=== PATIENT | female | born 1960 | race Caucasian/White ===

== ENCOUNTER → 2021-07-14 11:20 | Outpatient (CLI) | payer OTHER, SELFPAY ==
[2021-07-14 13:35] LABS: Vitamin B12 252 pg/mL (239-931)
[2021-07-17 16:20] LABS: Albumin 3.7 g/dL (2.9-4.4); Alpha-1-Globulin 0.2 g/dL (0.0-0.4); Alpha-2-Globulin 0.8 g/dL (0.4-1.0); Gamma Globulin 0.9 g/dL (0.4-1.8); Protein, Total 6.7 g/dL (6.0-8.5)
== END ==
PROVIDERS: Referring Provider Psychiatry & Neurology Neurology; Visit Provider Psychiatry & Neurology Neurology
DX: Z80.3 Family history of malignant neoplasm of breast (principal); G47.33 Obstructive sleep apnea (adult) (pediatric); F33.9 Major depressive disorder, recurrent, unspecified; F90.9 Attention-deficit hyperactivity disorder, unspecified type; M79.7 Fibromyalgia
CPT/HCPCS: 36415; 82607; 84155; 84165

== ENCOUNTER 2021-12-13 11:31 | Emergency (ER) | payer OTHER, SELFPAY ==
[2021-12-13 11:55] VITALS: BP 158/100; PULSE 94; RESP 16; TEMP 36.8; O2SAT 99; BMI 31.8
[2021-12-13] MEDS: LIDO 1%/SOD BICARB 8.4% (10ML) 10 ML SYRINGE INJ (14:45)
--- NOTE | 2021-12-13 14:49 | ED.WOUNDLAC ---
HPI - Wound/Laceration <TANYA Jackson - Last Filed: 12/13/21 15:42> General Chief Complaint: Wound/Laceration Stated Complaint: Cut right ring finger in mandolin Time Seen by Provider: 12/13/21 14:48 Mode of arrival: Family Vehicle History of Present Illness HPI narrative: 61-year-old female, nonsmoker, presents emergency department with avulsion laceration to her right ring finger while using a mandolin to cut courtneyi earlier today. Bleeding is controlled with direct pressure and pressure dressing. Patient is up-to-date with her tetanus. Related Data Home Medications Medication Instructions Recorded Confirmed Trazadone 150 mg PO 07/02/21 atorvastatin 20 mg tablet 20 mg PO BEDTIME 07/02/21 07/02/21 losartan 25 mg tablet 25 mg PO DAILY 07/02/21 07/02/21 methylphenidate HCl 36 mg 36 mg PO DAILY 07/02/21 07/02/21 tablet,extended release 24 hr (Concerta) Previous Rx's Medication Instructions Recorded oxycodone-acetaminophen 5 mg-325 1 tab PO Q6H PRN pain #10 tabs 12/13/21 mg tablet (Percocet) Allergies Allergy/AdvReac Type Severity Reaction Status Date / Time No Known Drug Allergies Allergy Unverified 07/02/21 11:43 Review of Systems <TANYA Jackson - Last Filed: 12/13/21 15:42> Review of Systems Narrative: Narrative: GENERAL: Denies chills, fatigue, fever, sweats. See HPI HEENT: Denies sinus pain, ear pain, sore throat, difficulty swallowing, dizziness. RESPIRATORY: Denies dyspnea, cough, wheezing, sputum. CARDIOVASCULAR: Denies chest pain, palpitations, edema. GASTROINTESTINAL: Denies nausea, vomiting, abdominal pain, diarrhea, constipation. : Denies dysuria, frequency, incontinence, hematuria, urinary retention, flank pain. MSK: Denies weakness, joint pain, or bony pain. SKIN: Endorses laceration of right ring finger, active bleeding and pain. NEUROLOGIC: Denies weakness, dizziness, headache, numbness, confusion. PSYCHIATRIC: No concerning psychosocial issues. Patient History <TANYA Jackson - Last Filed: 12/13/21 15:42> Social History Smoking Status: Never smoker Smoking Status: Never smoker Substance Use Type: does not use Exam <TANYA Jackson - Last Filed: 12/13/21 15:42> Narrative Exam Narrative: Exam Narrative: GENERAL: This is a well-nourished, well-developed patient, in no acute distress HEAD: Atraumatic. Normocephalic. MSK: Moves all extremities. Normal range of motion, no clubbing or edema. Neurovascularly intact. NEURO: A&O x 3. SKIN: 1 cm x 1.5 cm avulsion laceration to right distal ring finger. Fingernail affected and nothing left to suture. Initial Vital Signs Initial Vital Signs: Vital Signs Temperature 98.3 F 12/13/21 11:55 Pulse Rate 94 H 12/13/21 11:55 Respiratory Rate 16 12/13/21 11:55 Blood Pressure 158/100 H 12/13/21 11:55 Pulse Oximetry 99 12/13/21 11:55 Oxygen Delivery Method 12/13/21 11:55 Reviewed <Zonia Toney DO - Last Filed: 12/14/21 08:02> Initial Vital Signs Initial Vital Signs: Vital Signs Temperature 98.3 F 12/13/21 11:55 Pulse Rate 94 H 12/13/21 11:55 Respiratory Rate 16 12/13/21 11:55 Blood Pressure 158/100 H 12/13/21 11:55 Pulse Oximetry 99 12/13/21 11:55 Oxygen Delivery Method 12/13/21 11:55 Procedures <TANYA Jackson - Last Filed: 12/13/21 15:42> Laceration Repair Laceration 1: Site: hand (Right ring finger) Side (If applicable): right Size (cm): 2 Description: other (Avulsion) Local Anesthetic: lidocaine 1% and with bicarb Amount of anesthesia used (mL): 3 Skin layer closed with: other (Surgifoam) Course <TANYA Jackson - Last Filed: 12/13/21 15:42> Orders Ordered: Discontinued Medications Hydrocodone Bitart/Acetaminophen (Hydrocodone/Acet 5/325 Tablet) 1 tab PO NOW ONE Stop: 12/13/21 14:57 Last Admin: 12/13/21 15:00 Dose: 1 tab Documented By: JENNIE Lidocaine/Sodium Bicarbonate (Lido 1%/Sod Bicarb 8.4% (10ml) 10 Ml Syringe) 10 ml INJ NOW ONE Stop: 12/13/21 14:43 Last Admin: 12/13/21 14:45 Dose: 10 ml Documented By: JENNIE Vital Signs Vital signs: Vital Signs - 8 hr 12/13/21 11:55 Temperature 98.3 F Pulse Rate 94 H Respiratory Rate 16 Blood Pressure 158/100 H Pulse Oximetry 99 Oxygen Delivery Method Room Air <Zonia Toney DO - Last Filed: 12/14/21 08:02> Orders Ordered: Discontinued Medications Hydrocodone Bitart/Acetaminophen (Hydrocodone/Acet 5/325 Tablet) 1 tab PO NOW ONE Stop: 12/13/21 14:57 Last Admin: 12/13/21 15:00 Dose: 1 tab Documented By: JENNIE Lidocaine/Sodium Bicarbonate (Lido 1%/Sod Bicarb 8.4% (10ml) 10 Ml Syringe) 10 ml INJ NOW ONE Stop: 12/13/21 14:43 Last Admin: 12/13/21 14:45 Dose: 10 ml Documented By: JENNIE Vital Signs Vital signs: Vital Signs - 8 hr 12/13/21 11:55 Temperature 98.3 F Pulse Rate 94 H Respiratory Rate 16 Blood Pressure 158/100 H Pulse Oximetry 99 Oxygen Delivery Method Room Air MDM - Wound/Laceration <TANYA Jackson - Last Filed: 12/13/21 15:42> Differential Diagnosis Differential diagnosis: Likely avulsion of skin MDM Narrative Medical decision making narrative: 61-year-old female presents to the emergency department with right ring finger avulsion laceration. Tourniquet applied to right ring finger, wound was anesthetized, wound soaked in lidocaine with epinephrine to slow the bleeding but was not successful in stopping all bleeding. Surgifoam and Surgicel applied with a pressure dressing. Bleeding controlled. Tube gauze applied. Discussed wound care, plan of care and return precautions with patient and friend, who were agreeable with course of action. Discharge Plan Departure Patient Disposition: Home Clinical Impression: Avulsion of skin Instructions: DI for Wound Infection Activity Restrictions/Additional Instructions: *You have been diagnosed with a avulsion laceration of your right ring finger. We have numbed up the site and applied a clotting solution to the finger. Please keep the dressing on for the 1st 24 hours before removing, and less blood soaks to the dressing. In that case, please remove and re-dress as we discussed. After 24 hours, you may apply antibiotic ointment 2 times daily and change the dressing as needed. For worsening symptoms that include recurrent profuse bleeding, redness, yellow discharge, intolerable pain, please feel free to return to the emergency department. *What to do: *Please continue to take your regular medications as directed. [ ] New medication prescriptions sent to your pharmacy: [ ] [ x] New medication written as a paper prescription [ ] No new medications given *Please follow up with your primary care provider in 2-3 days, call for an appointment. Let them know you were seen in the Emergency Department and that we ask that you be seen in follow up. We will electronically transmit a record of today's note if your PCP is in our system *If you do not have a primary care provider please contact the [facility] Resource line at [phone]. They will ask some questions about your medical history and help get you set up with a doctor in the community. ? Return to ER if you should have any new, worsening or concerning symptoms, such as worsening pain, severe headache, confusion, chest pain, difficulty breathing, fever greater than 101 F, shaking chills, persistent vomiting to the point that you cannot drink fluids, or other new or worsening symptoms. Prescriptions: New oxycodone-acetaminophen [Percocet] 5-325 mg tablet 1 tab PO Q6H PRN (Reason: pain) Qty: 10 0RF No Action methylphenidate HCl [Concerta] 36 mg tablet extended release 24hr 36 mg PO DAILY Trazadone 150 mg capsule 150 mg PO losartan 25 mg tablet 25 mg PO DAILY atorvastatin 20 mg tablet 20 mg PO BEDTIME Referrals: Saleem Woodruff MD [Primary Care Provider] - Visit Report Forms: Patient Portal/API <Zonia Toney DO - Last Filed: 12/14/21 08:02> [facility] Yaneli Attestation: I was immediately available in the department for consultation. Documentation has been reviewed. I agree with assessment and plan.
[2021-12-13] MEDS: HYDROCODONE/ACET 5/325 TABLET 1 TAB PO (15:00)
--- NOTE | 2021-12-13 15:45 | PC.NURSE ---
finger covered with surgiceal and surgifoam by sewer pipe cleaner. that covered with tube gauze by rn with extra nonadherant pads and roll gauze to patient fro care ate home.
[2021-12-13 15:46] VITALS: BP 150/88; PULSE 80; RESP 16; O2SAT 98
== END 2021-12-13 15:46 | disposition home or self-care (01) ==
PROVIDERS: Emergency Provider Registered Nurse; PCP Internal Medicine
DX: S61.214A Laceration without foreign body of right ring finger without damage to nail, initial encounter (principal); W26.9XXA Contact with unspecified sharp object(s), initial encounter
CPT/HCPCS: 12001; 99283

== ENCOUNTER → 2022-04-18 11:31 | Outpatient (CLI) | payer OTHER, SELFPAY ==
--- NOTE | 2022-04-18 11:32 | DI.MRI.S_ITS ---
PROCEDURE: MR LUMBAR SPINE WO/W CON INDICATIONS: BACK PAIN TECHNIQUE: Noncontrast sagittal T1 spin echo and T2 fast spin echo, sagittal STIR, axial T1 and T2 fast spin echo through the lumbar spine. In cases with scoliosis, additional coronal T2 fast spin echo may be performed. After the administration of contrast, sagittal and axial T1 spin echo with fat saturation through the lumbar spine. COMPARISON: None. FINDINGS: Image quality: Excellent. Alignment and curvature: Grade 1 anterior spondylolisthesis noted at L3-4 Marrow: Marrow is of normal overall signal. No acute vertebral body compression fractures. No suspicious marrow enhancement. Spinal cord: Conus medullaris terminates at the L1 level. Visualized spinal cord demonstrates normal signal, without suspicious enhancement. Paraspinous soft tissues: No paravertebral masses or abnormal enhancement. T12-L1: Disc space is preserved. Hypertrophic ligamentum flavum results in mild central stenosis. Foraminal stenosis L1-L2: Disc height is preserved. Central or foraminal stenosis L2-L3: Disc height is preserved. Mild disc bulge and hypertrophic facet joints combined result in moderate central stenosis. No foraminal stenosis L3-L4: Disc space narrowing with circumferential disc bulge and hypertrophic facet joints combined result in severe central stenosis. Moderate bilateral foraminal stenosis L4-L5: Disc height is preserved. Circumferential disc bulge and hypertrophic facet joints combined result in moderate to severe central stenosis. Mild bilateral foraminal stenosis L5-S1: Disc height is preserved. No central or foraminal stenosis IMPRESSION: Multilevel degenerative disc disease and arthropathy results in varying degrees of central and foraminal stenosis including severe L3-4 and moderate to severe L4-5 central stenosis Approved by: Nolan Rabago M.D. on 04/18/2022 at 12:44
== END ==
PROVIDERS: PCP Internal Medicine; Referring Provider Internal Medicine; Visit Provider Internal Medicine
DX: M51.36 Other intervertebral disc degeneration, lumbar region (principal); M47.816 Spondylosis without myelopathy or radiculopathy, lumbar region; M48.061 Spinal stenosis, lumbar region without neurogenic claudication; M54.50 Low back pain, unspecified
CPT/HCPCS: 72158

== ENCOUNTER → 2022-04-20 11:54 | Outpatient (CLI) | payer OTHER, SELFPAY ==
--- NOTE | 2022-04-20 | DI.US.S_ITS ---
LIMITED ULTRASOUND OF LEFT BREAST AND AXILLA: 04/20/2022 CLINICAL: Palpable left breast lump and left axilla fullness. Comparison is made to exams dated: 04/20/2022 mammogram - [facility], 04/07/2021 mammogram, 12/12/2018 mammogram, 09/30/2017 ultrasound biopsy, 09/25/2017 ultrasound, and 09/25/2017 mammogram - outside location. Color flow ultrasound of the left breast axilla was performed on the areas of interest. Haney scale images of the real-time examination were reviewed. There is a normal appearing lymph node in the left axillary tail. There is a large fatty hilum associated with this node. The left axilla was interogated and normal appearing lymph nodes are visualized. IMPRESSION: BENIGN No left axillary adenopathy. There is no sonographic evidence of malignancy. Normal appearing lymphnode with large associated fatty hilum. Differential considerations include a lipoma. Clinical follow up recommended. Return to annual mammogram screening schedule is recommended. This exam was interpreted at Station ID: [id number]. Electronically Signed By: Felicitas alcala/:04/20/2022 13:42:45 copy to: KAREN SAMUELS letter sent: Clinical Evaluation Ultrasound BI-RADS: 2 Benign
--- NOTE | 2022-04-20 | DI.MG.S_ITS ---
BILATERAL DIGITAL DIAGNOSTIC MAMMOGRAM 3D/2D: 04/20/2022 Comparison is made to exams dated: 04/07/2021 mammogram, 12/12/2018 mammogram, and 09/25/2017 mammogram - outside location. Both breasts are almost entirely fatty (category a/<25% glandular tissue). No significant masses, calcifications, or other findings are seen in either breast. IMPRESSION: INCOMPLETE: NEEDS ADDITIONAL IMAGING EVALUATION There is no mammographic abnormality seen in the left breast to correspond with the palpable abnormality, however, targeted ultrasound of the left breast is recommended and will be performed immediately following this exam. Based on the Tyrer Cuzick model (a risk assessment model) the patient's lifetime risk is 14.5% and her 10 year risk is 6.5%. According to the ACR, ACS, and NCCN guidelines, an annual breast MRI exam along with mammogram is recommended if the patient's lifetime risk is 20% or greater. This exam was interpreted at Station ID: [id number]. NOTE: For mammograms, a report in lay terms will be sent to the patient. Approximately 15% of breast malignancies will not be visualized mammographically. In the management of a palpable breast mass, a negative mammogram must not discourage biopsy of a clinically suspicious lesion. Electronically Signed By: Felicitas Basilio M.D. lk/:04/20/2022 12:47:00 copy to: KAREN SAMUELS ACR BI-RADS Category 0: Incomplete [id number]
== END ==
PROVIDERS: PCP Internal Medicine; Referring Provider Surgery; Visit Provider Surgery
DX: N63.32 Unspecified lump in axillary tail of the left breast (principal); R92.2 Inconclusive mammogram
CPT/HCPCS: 76642; 77066; G0279

== ENCOUNTER → 2023-09-20 07:32 | Outpatient (CLI) | payer OTHER, SELFPAY ==
--- NOTE | 2023-09-20 07:33 | DI.MG.S_ITS ---
BILATERAL DIGITAL SCREENING MAMMOGRAM 3D/2D WITH CAD: 09/20/2023 CLINICAL: Routine screening. Family history of breast cancer. Comparison is made to exams dated: 04/20/2022 mammogram - [facility], 04/07/2021 mammogram, and 12/12/2018 mammogram - outside location. There are scattered areas of fibroglandular density in both breasts (category b / 25%-50% glandular tissue). Current study was also evaluated with a Computer Aided Detection (CAD) system. No significant masses, calcifications, or other findings are seen in either breast. There has been no significant interval change. IMPRESSION: NEGATIVE There is no mammographic evidence of malignancy. A 1 year screening mammogram is recommended. Based on the Tyrer Cuzick model (a risk assessment model) the patient's lifetime risk is 12.1% and her 10 year risk is 5.5%. According to the ACR, ACS, and NCCN guidelines, an annual breast MRI exam along with mammogram is recommended if the patient's lifetime risk is 20% or greater. This exam was interpreted at Station ID: [id number]. NOTE: For mammograms, a report in lay terms will be sent to the patient. Approximately 15% of breast malignancies will not be visualized mammographically. In the management of a palpable breast mass, a negative mammogram must not discourage biopsy of a clinically suspicious lesion. Electronically Signed By: Zachary gaytan/rajendra:09/20/2023 10:15:36 copy to: KAREN SAMUELS letter sent: Normal Exam ACR BI-RADS Category 1: Negative [id number]
== END ==
PROVIDERS: PCP Physician Assistant; Referring Provider Physician Assistant; Visit Provider Physician Assistant
DX: Z12.31 Encounter for screening mammogram for malignant neoplasm of breast (principal); Z80.3 Family history of malignant neoplasm of breast; R92.323 Mammographic fibroglandular density, bilateral breasts
CPT/HCPCS: 77063; 77067

== ENCOUNTER → 2025-02-22 16:23 | Outpatient (CLI) | payer OTHER, MEDICARE, SELFPAY ==
--- NOTE | 2025-02-22 16:29 | DI.RAD.S_ITS ---
PROCEDURE: XR RIBS RT 2V INDICATIONS: R SIDE PAIN TECHNIQUE: 2 views of the ribs were acquired. COMPARISON: None. FINDINGS: Surgical changes and devices: None. Bones and chest wall: Mild subluxation right AC joint No suspicious bony lesions. Overlying soft tissues appear unremarkable. Lungs and pleura: The visualized lung appears clear. No pleural effusions or pneumothorax are visible. IMPRESSION: Right ribs are unremarkable . Mild right AC subluxation Dictated by: Mario Rubalcava M.D. on 02/23/2025 at 12:59 Approved by: Mario Rubalcava M.D. on 02/23/2025 at 13:00
--- NOTE | 2025-02-22 16:29 | DI.RAD.S_ITS ---
PROCEDURE: XR THORACIC SPINE 2V INDICATIONS: R SIDE PAIN TECHNIQUE: 3 views of the thoracic spine were acquired. COMPARISON: None. FINDINGS: Thoracic spine curvature and alignment: Normal. Bones: Mild chronic wedging of all thoracic vertebral bodies likely reflects chronic Scheuermann's disease and/or chronic osteoporosis. Disc spaces: Severe degenerative disc disease is seen at each thoracic level. Soft tissues: No soft tissue swelling, calcification or mass. IMPRESSION: Severe degenerative disc disease throughout the thoracic spine. Mild chronic wedging due to chronic Scheuermann's disease and/or chronic osteoporotic compression fractures. Consider DEXA scanning Dictated by: Mario Rubalcava M.D. on 02/23/2025 at 12:58 Approved by: Mario Rubalcava M.D. on 02/23/2025 at 12:59
== END ==
PROVIDERS: PCP Physician Assistant; Referring Provider Physician Assistant; Visit Provider Physician Assistant
DX: S43.111A Subluxation of right acromioclavicular joint, initial encounter (principal); M48.54XA Collapsed vertebra, not elsewhere classified, thoracic region, initial encounter for fracture; R07.89 Other chest pain; R10.13 Epigastric pain; M47.814 Spondylosis without myelopathy or radiculopathy, thoracic region
CPT/HCPCS: 71100; 72070

== ENCOUNTER 2025-02-23 06:36 | Emergency (ER) | payer OTHER, MEDICARE, SELFPAY ==
[2025-02-23] VITALS (11 sets, daily range): BP systolic 150–176; BP diastolic 83–99; PULSE 70–83; RESP 13–28; TEMP 36.9; O2SAT 97–99; BMI 33.6
--- NOTE | 2025-02-23 06:53 | DI.CT.S_ITS ---
PROCEDURE: CT ANGIO CHEST PE PROTOCOL INDICATIONS: high dimer with right sided chest pain TECHNIQUE: After the administration of intravenous contrast, 2 mm thick sections acquired from the pulmonary apices to the posterior costophrenic angles. 3-dimensional maximum intensity projection (MIP) coronal and sagittal reformats were then acquired through the thorax. For radiation dose reduction, the following was used: automated exposure control, adjustment of mA and/or kV according to patient size. COMPARISON: None. FINDINGS: Image quality: Diagnostic. Pulmonary arteries: Pulmonary arteries are normal in size, and demonstrate no intraluminal filling defects to suggest central pulmonary embolism. Lower Neck: No enlarged lymph nodes. Thyroid: No thyroid nodules which require sonographic follow up, per consensus guidelines. Axillae: No enlarged lymph nodes. Chest Wall: Unremarkable. Bones: Unremarkable. Lungs and Pleura: No pneumothorax or pleural effusions. 2 mm Magnolia fissural nodule, subjacent to the minor fissure, right lung, image 118 of series 6. Heart: Heart size is normal. No pericardial effusion. Thoracic Vessels: No aortic aneurysm. Mediastinum and Ritu: No enlarged lymph nodes. Esophagus: No wall thickening. No hiatal hernia. Upper Abdomen: Visualized upper abdomen solid organs and bowel loops appear normal. IMPRESSION: No pulmonary embolus. No acute cardiopulmonary process. Incidental 2 mm pulmonary nodule. Comment: Consider optional 12 month follow-up CT chest. Dictated by: Kai Hannah M.D. on 02/23/2025 at 8:16 Approved by: Kai Hannah M.D. on 02/23/2025 at 8:19
--- NOTE | 2025-02-23 06:53 | DI.US.S_ITS ---
PROCEDURE: US ABDOMEN LIMITED INDICATIONS: ruq pain TECHNIQUE: Real-time focused scanning was performed of the abdomen, with image documentation. COMPARISON: None. FINDINGS: Multiple liver cysts are present, largest measuring up to 1.1 cm and 1.5 cm. Some of the cysts contain septations. No solid appearing soft tissue nodule identified. Overall increased parenchymal echogenicity. Unremarkable gallbladder. CBD is mildly distended at 8 mm. Unremarkable pancreas. Right kidney cysts also incidentally noted measuring up to 2 cm. IMPRESSION: Unremarkable sonographic appearance of the gallbladder. CBD is borderline dilated at 8 mm. Correlate LFTs. Multiple liver and renal cysts. Some of the liver cysts contain septations. Increased hepatic echogenicity is nonspecific, most commonly due to steatosis. Dictated by: Ozzie Gray M.D. on 02/23/2025 at 8:22 Approved by: Ozzie Gray M.D. on 02/23/2025 at 8:24
--- NOTE | 2025-02-23 06:57 | ED_ITS ---
HPI - Back Pain/Injury <Zonia Toney, - Last Filed: 02/27/25 08:16> General Chief Complaint: Back Pain/Injury Stated Complaint: per patient , Blood clot in lung or anywhere Time Seen by Provider: 02/23/25 06:47 Source: patient History of Present Illness HPI Narrative: Patient is a 64-year-old female history of hyperlipidemia neuropathy presenting to day with ongoing right sided upper quadrant pain and chest pain. She reports it has been ongoing for about 5-6 days. Starts in her back wraps around. She sometimes feels nauseous sometimes food makes it worse. No real shortness of breath or chest pain. She reports that she has been sitting at her desk more due to heavy workload still gets up and walks. She has no calf pain or leg swelling. She saw her PCP yesterday who ordered some outpatient blood work who also ordered a D-dimer and it was found to be quite elevated. Sent here for pulmonary embolism rule out. Patient denies any significant shortness of breath fever chills or cough. Related Data Home Medications ?Medication ?Instructions ?Recorded ?Confirmed Trazadone 150 mg PO 07/02/21 03/02/22 methylphenidate HCl 36 mg 36 mg PO DAILY 07/02/2108/18 tablet,extended release 24 hr (Concerta) gabapentin 600 mg tablet 600 mg PO DAILY 03/02/2208/18 omeprazole 20 mg capsule,delayed 20 mg PO DAILY 03/02/22 release rosuvastatin 40 mg tablet 40 mg PO DAILY 03/02/2208/18 trazodone 150 mg tablet 150 mg PO DAILY 03/02/2208/18 Previous Rx's ?Medication ?Instructions ?Recorded hydrocodone 5 mg-acetaminophen 325 1 tab PO Q6H PRN pa in #10 tabs 02/23/25 mg tablet lidocaine 5 % topical patch 1 patch topical DAILY PRN pain #15 02/23/25 ea Allergies Allergy/AdvReac Type Severity Reaction Status Date / Time Penicillins Allergy ITCHING Verified 02/23/25 06:44 Sulfa (Sulfonamide Allergy ITCHING Verified 02/23/25 06:44 Antibiotics) Review of Systems <DO Pattie Del Real Last Filed: 02/23/25 10:22> Review of Systems ROS Unobtainable: All systems reviewed & are unremarkable except as noted in HPI and below Patient History <Zonia Toney DO - Last Filed: 02/27/25 08:16> Medical History Lipoma of arm Back complaints HBP (high blood pressure) Sleep apnea Surgical History History of breast lift H/O abdominoplasty H/O knee surgery History of Family History Mother Hypertension Gallstones Breast cancer Sister Gallstones Hypertension Son Hodgkins lymphoma Brother Hypertension Social History marital status: unmarried,single lives independently: Yes occupational status: employed alcohol intake: current substance use type: does not use Smoking Status: Former smoker Exam <DO Pattie Stanton Last Filed: 02/27/25 08:16> Initial Vital Signs Initial Vital Signs: Vital Signs Temperature 98.4 F 02/23/25 06:42 Pulse Rate 83 02/23/25 06:42 Respiratory Rate 28 H 02/23/25 06:42 Blood Pressure 169/92 H 02/23/25 06:42 Pulse Oximetry 99 02/23/25 06:42 Oxygen Delivery Method Room Air 02/23/25 06:42 GENERAL: Well-appearing, well-nourished and in no acute distress. HEENT: Head atraumatic,EOMI, pupils reactive, face symmetric, moist mucous membranes CARDIOVASCULAR: Regular rate and rhythm without murmurs, rubs or gallops. RESPIRATORY: Breath sounds equal bilaterally, no wheezes rales or rhonchi. Speaks in full sentences without any difficulty ABDOMEN: Soft, nontender. Normoactive bowel sounds all 4 quadrants. No guarding or rebound. Mild right upper quadrant pain no guarding no rebound EXTREMITIES: Normal range of motion, no clubbing or edema. Neurovascularly intact NEUROLOGICAL: Alert and oriented x4.Normal gait and speech. Cranial nerves II through XII grossly intact. SKIN: Warm, dry, no laceration, no petechiae, no rashes or lesions. <Nicole C Mank, DO - Last Filed: 02/23/25 10:22> Initial Vital Signs Initial Vital Signs: Vital Signs Temperature 98.4 F 02/23/25 06:42 Pulse Rate 83 02/23/25 06:42 Respiratory Rate 28 H 02/23/25 06:42 Blood Pressure 169/92 H 02/23/25 06:42 Pulse Oximetry 99 02/23/25 06:42 Oxygen Delivery Method Room Air 02/23/25 06:42 Course <Zonia Toney, DO - Last Filed: 02/27/25 08:16> Orders Ordered: Discontinued Medications Ketorolac Tromethamine (Ketorolac 30 Mg/Ml Vial) 15 mg IV NOW ONE Stop: 02/23/25 08:43 Last Admin: 02/23/25 09:02 Dose: 15 mg Documented By: DAVID Vital Signs Vital signs: Vital Signs - 8 hr 02/23/25 06:42 02/23/25 06:48 02/23/25 07:00 Temperature 98.4 F Pulse Rate 83 80 73 Respiratory Rate 28 H 20 24 Blood Pressure 169/92 H Pulse Oximetry 99 98 99 Oxygen Delivery Method Room Air 02/23/25 07:02 02/23/25 07:02 02/23/25 07:30 Temperature Pulse Rate 70 70 Respiratory Rate 13 20 Blood Pressure 169/87 H Pulse Oximetry 99 99 Oxygen Delivery Method 02/23/25 07:30 02/23/25 07:55 02/23/25 07:55 Temperature Pulse Rate 74 Respiratory Rate 13 Blood Pressure 155/83 H 176/99 H Pulse Oximetry 98 Oxygen Delivery Method 02/23/25 08:00 02/23/25 08:01 02/23/25 08:01 Temperature Pulse Rate 77 77 Respiratory Rate 22 23 Blood Pressure 172/86 H Pulse Oximetry 98 98 Oxygen Delivery Method 02/23/25 08:30 02/23/25 08:31 02/23/25 08:31 Temperature Pulse Rate 74 77 Respiratory Rate 24 19 Blood Pressure 154/99 H Pulse Oximetry 98 98 Oxygen Delivery Method 02/23/25 09:38 Temperature Pulse Rate 74 Respiratory Rate 18 Blood Pressure 150/86 H Pulse Oximetry 97 Oxygen Delivery Method Room Air <Nicole Evangelista DO - Last Filed: 02/23/25 10:22> Orders Ordered: Discontinued Medications Ketorolac Tromethamine (Ketorolac 30 Mg/Ml Vial) 15 mg IV NOW ONE Stop: 02/23/25 08:43 Last Admin: 02/23/25 09:02 Dose: 15 mg Documented By: DAVID Vital Signs Vital signs: Vital Signs - 8 hr 02/23/25 06:42 02/23/25 06:48 02/23/25 07:00 Temperature 98.4 F Pulse Rate 83 80 73 Respiratory Rate 28 H 20 24 Blood Pressure 169/92 H Pulse Oximetry 99 98 99 Oxygen Delivery Method Room Air 02/23/25 07:02 02/23/25 07:02 02/23/25 07:30 Temperature Pulse Rate 70 70 Respiratory Rate 13 20 Blood Pressure 169/87 H Pulse Oximetry 99 99 Oxygen Delivery Method 02/23/25 07:30 02/23/25 07:55 02/23/25 07:55 Temperature Pulse Rate 74 Respiratory Rate 13 Blood Pressure 155/83 H 176/99 H Pulse Oximetry 98 Oxygen Delivery Method 02/23/25 08:00 02/23/25 08:01 02/23/25 08:01 Temperature Pulse Rate 77 77 Respiratory Rate 22 23 Blood Pressure 172/86 H Pulse Oximetry 98 98 Oxygen Delivery Method 02/23/25 08:30 02/23/25 08:31 02/23/25 08:31 Temperature Pulse Rate 74 77 Respiratory Rate 24 19 Blood Pressure 154/99 H Pulse Oximetry 98 98 Oxygen Delivery Method 02/23/25 09:38 Temperature Pulse Rate 74 Respiratory Rate 18 Blood Pressure 150/86 H Pulse Oximetry 97 Oxygen Delivery Method Room Air MDM - Back Pain/Injury <Zonia Toney, DO - Last Filed: 02/27/25 08:16> Lab Data 02/23/25 07:01 02/23/25 07:01 Labs: Lab Results 02/23/25 02/23/25 Range/Units 07:01 08:01 WBC 5.4 (4.5-11.0) X10^3/uL RBC 4.35 (4.0-5.2) X10^6/uL Hgb 13.2 (12.0-16.0) g/dL Hct 39.9 (36-46) % MCV 91.8 (80-100) fL MCH 30.4 (26-34) PG MCHC 33.1 (30-36) % RDW 14.3 (11.6-14.8) % Plt Count 213 (150-400) X10^3/uL Neut % (Auto) 54.3 (50-75) % Lymph % (Auto) 34.4 (25-40) % [place] % (Auto) 7.1 (3-14) % Eos % (Auto) 2.7 (2-4) % Baso % (Auto) 1.5 (0-2) % Neut # (Auto) 2900 (4794-0521) /uL Lymph # (Auto) 1800 (8440-2120) /uL [place] # (Auto) 400 (0-900) /uL Eos # (Auto) 100 (0-450) /uL Baso # (Auto) 100 (0-100) /uL PT 10.2 (9.4-12.5) SECONDS INR 0.9 (0.9-1.3) APTT 20 L (25.1-36.5) SECONDS D-Dimer 4694 H (<500) ng/ml Sodium 136 L (137-145) mmol/L Potassium 3.8 (3.4-5.1) mmol/L Chloride 102 (98-107) mmol/L Carbon Dioxide 26 (22-32) mmol/L BUN 16 (7-17) mg/dL Creatinine 0.79 (0.52-1.04) mg/dL Estimated GFR > 60 (>60) mL/min BUN/Creatinine Ratio 20.3 (6-22) Glucose 100 H (70-99) mg/dL Calcium 8.5 (8.4-10.2) mg/dL Magnesium 1.6 (1.6-2.3) mg/dL Total Bilirubin 0.5 (0.2-1.3) mg/dL AST 25 (14-36) IU/L ALT 22 (<35) IU/L Alkaline Phosphatase 63 (38-126) U/L Troponin I < 0.012 (0.01-0.034) ng/mL NT-Pro-B Natriuret Pep < 20 (<125) pg/mL Total Protein 7.5 (6.3-8.2) g/dL Albumin 4.4 (3.5-5.0) g/dL Globulin 3.1 (1.7-4.1) g/dL Albumin/Globulin Ratio 1.4 (1.0-2.8) Lipase 88 (23-300) U/L Urine Color Yellow Urine Appearance Clear Urine pH 5.5 (4.5-8.0) Ur Specific [place] >=1.030 H (1.000-1.035) Urine Protein Trace H (Negative) Urine Glucose (UA) Negative (Negative) g/dL Urine Ketones Negative (NEGATIVE) Urine Occult Blood 2+ H (Negative) Urine Nitrate Negative (Negative) Urine Bilirubin Negative (NEGATIVE) Urine Urobilinogen 0.2 (0.2) E.U./dL Ur Leukocyte Esterase Negative (NEGATIVE) Urine RBC 1-5/hpf (0-5/HPF) Urine WBC 0-1/hpf (0-5/HPF) Ur Squamous Epith Cells 5-10 /hpf H (0-5/HPF) Urine Bacteria Occasional (0-1) (None) Ur Culture Indicated? Cult not indicated Vol Urine Centrifuged 10ml (spun) MDM Narrative Medical decision making narrative: Patient is 64-year-old female history of hyperlipidemia here with right-sided chest pain and right upper quadrant pain. Blood work CT angio and ultrasound are all pending. Signed out to Dr. Evangelista <Nicole Evangelista, DO - Last Filed: 02/23/25 10:22> Lab Data Labs: Lab Results 02/23/25 02/23/25 Range/Units 07:01 08:01 WBC 5.4 (4.5-11.0) X10^3/uL RBC 4.35 (4.0-5.2) X10^6/uL Hgb 13.2 (12.0-16.0) g/dL Hct 39.9 (36-46) % MCV 91.8 (80-100) fL MCH 30.4 (26-34) PG MCHC 33.1 (30-36) % RDW 14.3 (11.6-14.8) % Plt Count 213 (150-400) X10^3/uL Neut % (Auto) 54.3 (50-75) % Lymph % (Auto) 34.4 (25-40) % [place] % (Auto) 7.1 (3-14) % Eos % (Auto) 2.7 (2-4) % Baso % (Auto) 1.5 (0-2) % Neut # (Auto) 2900 (7987-4238) /uL Lymph # (Auto) 1800 (6715-5168) /uL [place] # (Auto) 400 (0-900) /uL Eos # (Auto) 100 (0-450) /uL Baso # (Auto) 100 (0-100) /uL PT 10.2 (9.4-12.5) SECONDS INR 0.9 (0.9-1.3) APTT 20 L (25.1-36.5) SECONDS D-Dimer 4694 H (<500) ng/ml Sodium 136 L (137-145) mmol/L Potassium 3.8 (3.4-5.1) mmol/L Chloride 102 (98-107) mmol/L Carbon Dioxide 26 (22-32) mmol/L BUN 16 (7-17) mg/dL Creatinine 0.79 (0.52-1.04) mg/dL Estimated GFR > 60 (>60) mL/min BUN/Creatinine Ratio 20.3 (6-22) Glucose 100 H (70-99) mg/dL Calcium 8.5 (8.4-10.2) mg/dL Magnesium 1.6 (1.6-2.3) mg/dL Total Bilirubin 0.5 (0.2-1.3) mg/dL AST 25 (14-36) IU/L ALT 22 (<35) IU/L Alkaline Phosphatase 63 (38-126) U/L Troponin I < 0.012 (0.01-0.034) ng/mL NT-Pro-B Natriuret Pep < 20 (<125) pg/mL Total Protein 7.5 (6.3-8.2) g/dL Albumin 4.4 (3.5-5.0) g/dL Globulin 3.1 (1.7-4.1) g/dL Albumin/Globulin Ratio 1.4 (1.0-2.8) Lipase 88 (23-300) U/L Urine Color Yellow Urine Appearance Clear Urine pH 5.5 (4.5-8.0) Ur Specific [place] >=1.030 H (1.000-1.035) Urine Protein Trace H (Negative) Urine Glucose (UA) Negative (Negative) g/dL Urine Ketones Negative (NEGATIVE) Urine Occult Blood 2+ H (Negative) Urine Nitrate Negative (Negative) Urine Bilirubin Negative (NEGATIVE) Urine Urobilinogen 0.2 (0.2) E.U./dL Ur Leukocyte Esterase Negative (NEGATIVE) Urine RBC 1-5/hpf (0-5/HPF) Urine WBC 0-1/hpf (0-5/HPF) Ur Squamous Epith Cells 5-10 /hpf H (0-5/HPF) Urine Bacteria Occasional (0-1) (None) Ur Culture Indicated? Cult not indicated Vol Urine Centrifuged 10ml (spun) ECG Data Attestation: I personally reviewed and interpreted this ECG as follows: Prior ECG tracings: not available for review Interpretation: Sinus rhythm rate of 68 CT 176 QRS 80 QTC of 478, no acute ST-elevation depression. No prior for comparison MDM Narrative Medical decision making narrative: Patient is 64-year-old female history of hyperlipidemia here with right-sided chest pain and right upper quadrant pain. Blood work CT angio and ultrasound are all pending. Signed out to Dr. Evangelista 02/23/25 Dr. Evangelista: Patient is seen and evaluated by myself patient signed out to myself, labs show white count of 5.4 hemoglobin of 13 platelets are 213, INR is 0.9 PTT is 20, D-dimer is 4694. Electrolyte shows sodium 136 otherwise normal range creatinine 0.79 glucose is 100 LFTs are normal troponins less than 0.012 with a BNP of less than 20. Lipase is 88. Urinalysis shows 2+ blood, 5-10 squamous, 1-5 red cells, trace protein. EKG shows sinus rhythm rate of 68, no acute ST changes. CT angio PE protocol, no pulmonary embolism not, no acute cardiopulmonary process incidental 2 mm pulmonary nodule. Heart size is normal. No pericardial effusion. No aortic aneurysm. Right upper quadrant ultrasound unremarkable sonographic appearance of gallbladder CBD is Brilinta dilated 8 mm correlate with LFTs multiple liver and renal cysts some of the liver cysts contain septations increased hepatic echogenicity is nonspecific most likely due to steatosis. Patient had Toradol On exam patient is nontender in the midline spine but it is tender of the right lateral thoracic region pain wraps around, she states it is worse with movement. D-dimer was elevated but workup does not show any pulmonary embolism patient is localized to the right side of the chest. Reviewed patient's workup she did have a 2 mm pulmonary nodule. She is nontender in her right upper quadrant on exam. She has had 5 days of symptoms that are persistent. 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 Discharge Plan Departure Patient Disposition: Home Clinical Impression: Back pain, thoracic, Atypical chest pain, Pulmonary nodule Instructions: DI for Thoracic Back Pain Activity Restrictions/Additional Instructions: Your workup today incidentally shows a 2 mm pulmonary nodule, talk with your physician they may wish to follow up with a [address] of your chest. On your imaging no signs of blood clots, changes to the lungs or vessels, based on your exam and findings I think this is potentially related to your thoracic spine or back. Please follow up with your physician and/or spinal surgery as needed. You can take [place] 1-2 tablets every 6 hours as needed for pain. This medication can make you sleepy do not drive, perform hazardous activities or make any major decisions while taking it. This medication will make you constipated please take a stool softener once to twice daily until stools are soft and regular. You can also use lidocaine patch to the affected area if this is helpful. Prescription was sent to [facility] in [place]. Please return for fevers, new or worsening abdominal back or flank pain, persistent vomiting, lightheadedness or passing out, new rash or skin changes, changing location of pain or other new or concerning changes. Prescriptions: New lidocaine 5 % adhesive patch,medicated 1 patch topical DAILY PRN (Reason: pain) Qty: 15 0RF Rx Instructions: leave on most painful area for up to 12 hrs hydrocodone-acetaminophen 5-325 mg tablet 1 tab PO Q6H PRN (Reason: pain) Qty: 10 0RF No Action methylphenidate HCl [Concerta] 36 mg tablet extended release 24hr 36 mg PO DAILY Trazadone 150 mg capsule 150 mg PO trazodone 150 mg tablet 150 mg PO DAILY rosuvastatin 40 mg tablet 40 mg PO DAILY gabapentin 600 mg tablet 600 mg PO DAILY omeprazole 20 mg capsule,delayed release(DR/EC) 20 mg PO DAILY Referrals: Gabriela Donahue PA-C [Primary Care Provider, Medical] Stand Alone Forms: Patient Portal/API
[2025-02-23 07:10] LABS: Add Manual Diff / Slide Review NO; Hematocrit 39.9 % (36-46); Hemoglobin 13.2 g/dL (12.0-16.0); Lymphocytes Absolute Auto 1800 /uL (1100-4500); Mean Corpuscular HGB Conc 33.1 % (30-36); Mean Corpuscular Hemoglobin 30.4 PG (26-34); Mean Corpuscular Volume 91.8 fL (80-100); Platelet Count 213 X10^3/uL (150-400)
[2025-02-23 07:19] LABS: INR 0.9 (0.9-1.3); Prothrombin Time 10.2 SECONDS (9.4-12.5)
[2025-02-23 07:22] LABS: PTT Partial Thromboplastin Tim 20 SECONDS (25.1-36.5)
[2025-02-23 07:24] LABS: Alanine Aminotransferase 22 IU/L (<35); Albumin 4.4 g/dL (3.5-5.0); Albumin Globulin Ratio 1.4 (1.0-2.8); Alkaline Phosphatase 63 U/L (38-126); Blood Urea Nitrogen 16 mg/dL (7-17); Calcium 8.5 mg/dL (8.4-10.2); Carbon Dioxide 26 mmol/L (22-32); Chloride 102 mmol/L (98-107); Estimated Glomerular Filt Rate > 60 mL/min (>60); Globulin 3.1 g/dL (1.7-4.1); Glucose 100 mg/dL (70-99); HEMOLYSIS 28 (0-50); Lipase 88 U/L (23-300); Magnesium 1.6 mg/dL (1.6-2.3); Potassium 3.8 mmol/L (3.4-5.1); Sodium 136 mmol/L (137-145); Total Protein 7.5 g/dL (6.3-8.2)
[2025-02-23 07:35] LABS: NT-proBNP (BNP-Adult 18+) < 20 pg/mL (<125); Troponin I < 0.012 ng/mL (0.01-0.034)
--- NOTE | 2025-02-23 08:05 | EKG_ITS ---
[facility] [address] [address] Test Date: 2025-02-23 Pat Name: Cadence Beltran Department: [facility] Room: Gender: Female [employer] Engine Mechanic: JASMEET : [id number] Requested By: Order Number: [id number] Reading MD: Mario Patel MD Measurements Intervals [place] Rate: 68 P: 49 MI: 176 QRS: 20 QRSD: 80 T: 34 QT: 450 QTc: 478 Interpretive Statements Normal sinus rhythm Electronically Signed On 03-07-2025 8:58:02 PST by Mario Patel MD
[2025-02-23 08:12] LABS: Appearance Urine UA CLEAR; Bilirubin Urine UA NEGATIVE (NEGATIVE); Color Urine UA YELLOW; Glucose Urine UA NEGATIVE (Negative); Ketones Urine UA NEGATIVE (NEGATIVE); Leukocyte Esterase Urine UA NEGATIVE (NEGATIVE); Nitrite Urine UA NEGATIVE (Negative); Occult Blood Urine UA 2+ (Negative); Protein Urine UA TRACE (Negative); Specific Gravity Urine UA >=1.030 (1.000-1.035); Urobilinogen Urine UA 0.2 E.U./dL (0.2)
[2025-02-23 08:17] LABS: pH Urine UA 5.5 (4.5-8.0)
[2025-02-23 08:24] LABS: Culture Indicated Urine Cult Not Indicated
[2025-02-23] MEDS: KETOROLAC 30 MG/ML VIAL 15 MG IV (09:02)
== END 2025-02-23 09:39 | disposition home or self-care (01) ==
PROVIDERS: Emergency Medicine; Emergency Provider Emergency Medicine; PCP Physician Assistant
DX: R07.89 Other chest pain (principal); M54.6 Pain in thoracic spine; R91.1 Solitary pulmonary nodule
CPT/HCPCS: 71275; 76705; 80053; 81001; 83690; 83735; 83880; 84484; 85025; 85379; 85610; 85730; 93005; 93010; 96374; 99284; J1885; Q9967

== ENCOUNTER → 2025-04-27 14:47 | Outpatient (CLI) | payer OTHER, MEDICARE, SELFPAY ==
--- NOTE | 2025-04-27 14:48 | DI.MG.S_ITS ---
MM screening mammo BI: 04/27/2025. BI-RADS: 1 CLINICAL: 64-year old female for bilateral screening mammogram. Tyrer-Cuzick lifetime risk of 24.2%. Current reported family history of breast cancer: mother. The patient had a prior left breast biopsy. The patient had a mastopexy in both breasts. PRIOR EXAMS 09/20/2023, 04/20/2022. MAMMOGRAPHY TECHNIQUE: 2D and 3D (tomosynthesis) digital mammographic views obtained, with additional images as needed for full coverage. Current study was also evaluated with a Computer Aided Detection (CAD) system. DENSITY C. The breasts are heterogeneously dense, which may obscure small masses. MAMMOGRAPHY FINDINGS Bilateral: No suspicious mass, asymmetry, microcalcification, or other abnormality seen. IMPRESSION: * No evidence of malignancy. RECOMMENDATIONS Bilateral * According to the Tyrer-Cuzick Risk Assessment Model, based on the information provided your patient has a greater than 20% lifetime risk for developing breast cancer. Consider supplemental screening with breast MRI and participation in a high risk screening program. * Annual screening mammography. OVERALL ASSESSMENT CATEGORY BI-RADS-1: Negative. The [employer] recommends annual screening mammography beginning at age 40 for women with average risk of breast cancer. ELECTRONICALLY SIGNED: Melissa Moreira M.D. on 05/01/2025 at 01:21:08 AM PT Interpreting Station ID: [id number]
== END ==
LOC: MAMMO 14:48
PROVIDERS: PCP Physician Assistant; Referring Provider Physician Assistant; Visit Provider Physician Assistant
DX: Z12.31 Encounter for screening mammogram for malignant neoplasm of breast (principal); R92.333 Mammographic heterogeneous density, bilateral breasts; Z80.3 Family history of malignant neoplasm of breast
CPT/HCPCS: 77063; 77067